=== PATIENT | male | born 1965 | race Caucasian/White ===

== ENCOUNTER 2017-04-04 12:31 | Emergency (ER) | payer MEDICAID ==
[~2017-04-04] VITALS: Ht 188 cm; Wt 127.0 kg
[2017-04-04 12:39] VITALS: BP 157/77
[2017-04-04 14:17] LABS: Basophils # (auto) 0.1 uL; Basophils % (auto) 0.5 % (0.0-2.0); Eosinophils # (auto) 0.1 uL; Eosinophils % (auto) 0.8 % (0.0-7.0); Hematocrit 51.8 % (41.0-53.0); Hemoglobin 17.3 g/dL (13.5-17.5); Lymphocytes # (auto) 1.8 uL; Lymphocytes % (auto) 18.3 % (10.0-50.0); Mean Corpuscular Hemoglobin 30.8 pg (28.0-32.0); Mean Corpuscular Hgb Conc. 33.4 g/dL (32.0-36.0); Mean Corpuscular Volume 92.3 fL (80.0-100.0); Mean Platelet Volume 7.7 fL (7.4-10.4); Monocytes # (auto) 0.6 uL; Monocytes % (auto) 6.2 % (0.0-12.0); Neutrophils # (auto) 7.1 uL; Neutrophils % (auto) 74.2 % (37.0-80.0); Platelet Count (auto) 342 10^3/uL (140-450); Red Cell Distribution Width 14.9 % (11.6-16.0); White Blood Cell 9.6 10^3/uL (4.4-10.8)
[2017-04-04 14:48] LABS: Albumin 3.7 g/dL (3.4-5.0); BUN/Creatinine Ratio 10.5; Bilirubin, Total 0.4 mg/dL (0.2-1.0); Calcium 8.1 mg/dL (8.5-10.1); Potassium 3.7 mmol/L (3.5-5.1); Total Protein 8.2 g/dL (6.4-8.2)
== END 2017-04-04 17:11 | disposition left against medical advice (07) ==
LOC: EDUNIT# 12:31 → ER 12:39
DX: M25.562 Pain in left knee (principal); M25.561 Pain in right knee; Z53.21 Procedure and treatment not carried out due to patient leaving prior to being seen by health care provider
CPT/HCPCS: 36415; 73562; 80053; 80320; 85025

== ENCOUNTER 2017-04-04 21:48 | Observation (INO) | payer MEDICAID ==
[~2017-04-04] VITALS: Ht 185.4 cm; Wt 136.1 kg
[2017-04-04 22:30] LABS: Basophils # (auto) 0 uL; Basophils % (auto) 0.1 % (0.0-2.0); Eosinophils # (auto) 0.1 uL; Hematocrit 51.9 % (41.0-53.0); Hemoglobin 17.1 g/dL (13.5-17.5); Lymphocytes # (auto) 1.7 uL; Lymphocytes % (auto) 18.2 % (10.0-50.0); Mean Corpuscular Hemoglobin 30.5 pg (28.0-32.0); Mean Corpuscular Hgb Conc. 32.9 g/dL (32.0-36.0); Mean Corpuscular Volume 92.6 fL (80.0-100.0); Mean Platelet Volume 7.7 fL (7.4-10.4); Monocytes # (auto) 0.4 uL; Monocytes % (auto) 3.9 % (0.0-12.0); Neutrophils % (auto) 76.8 % (37.0-80.0); Platelet Count (auto) 272 10^3/uL (140-450); Red Cell Distribution Width 14.7 % (11.6-16.0); SUSPECT VIEW TRANSMISSION; White Blood Cell 9.1 10^3/uL (4.4-10.8)
[2017-04-04 22:57] LABS: Platelet Clumps FEW
[2017-04-04 23:00] LABS: Albumin 3.6 g/dL (3.4-5.0); BUN/Creatinine Ratio 8.3; Bilirubin, Total 0.3 mg/dL (0.2-1.0); Calcium 8.1 mg/dL (8.5-10.1); Potassium 3.8 mmol/L (3.5-5.1); Total Protein 7.9 g/dL (6.4-8.2)
[2017-04-05] MEDS ORDERED: SODIUM CHLORIDE 0.9% 1,000 ML IV ONE (00:45)
[2017-04-05] MEDS ORDERED: BACITRACIN TOP OINT 1 UD PKG TOP ONE (02:15)
[2017-04-05] MEDS ORDERED: LIDOCAINE HCL 1 % PF INJ 2ML AMP IJ ONE (02:15)
[2017-04-05] MEDS ORDERED: LIDOCAINE 1% HCL (LOCAL ANESTH.) INJ 20ML MDV ONE (02:37)
[2017-04-05] MEDS ORDERED: THIAMINE INJ 100 MG, MULTIPLE VITAMIN 10 ML, FOLIC ACID 1 MG, MAGNESIUM SULF SDV 50% 8 ... IV SCH ×10 (02:56→12:00)
[2017-04-05] MEDS ORDERED: LIDOCAINE 1% HCL (LOCAL ANESTH.) INJ 20ML MDV IJ ONE (03:00)
[2017-04-05] MEDS ORDERED: THIAMINE HCL 100 MG/ML 2ML VIAL ONE (03:19)
[2017-04-05] MEDS ORDERED: MVI in SODIUM CHLORIDE 0.9% 1,010 ML ONE (03:20)
[2017-04-05 06:01] VITALS: BP 131/88
== END 2017-04-05 06:38 | disposition home or self-care (01) | DRG 115 ==
LOC: ER 21:48 → EDBD 21:48 → OVERFLOW 21:49 → ER 04-05 06:38
PROVIDERS: ADMIT Emergency Medicine; ATTEND Emergency Medicine
DX: S02.2XXA Fracture of nasal bones, initial encounter for closed fracture (principal); G92 Toxic encephalopathy; S01.80XA Unspecified open wound of other part of head, initial encounter; F12.10 Cannabis abuse, uncomplicated; F10.129 Alcohol abuse with intoxication, unspecified; F19.10 Other psychoactive substance abuse, uncomplicated; W01.0XXA Fall on same level from slipping, tripping and stumbling without subsequent striking against object, initial encounter; Y93.89 Activity, other specified; Y92.89 Other specified places as the place of occurrence of the external cause; Y99.8 Other external cause status
CPT/HCPCS: 12013; 36415; 70450; 70486; 72125; 80053; 80307; 80320; 85025; 93005; 96361; 96365; 96366; 99285; G0378; J2001; J3411; J3475; J7030

== ENCOUNTER 2017-04-16 21:43 | Emergency (ER) | payer MEDICAID ==
[~2017-04-16] VITALS: Ht 185.4 cm; Wt 127.0 kg
[2017-04-16 22:38] LABS: Albumin 3.6 g/dL (3.4-5.0); Calcium 8.3 mg/dL (8.5-10.1); Potassium 3.8 mmol/L (3.5-5.1)
[2017-04-16 22:43] LABS: Bilirubin, Total 0.2 mg/dL (0.2-1.0); Total Protein 7.7 g/dL (6.4-8.2)
[2017-04-16 23:00] LABS: Basophils # (auto) 0.1 uL; Basophils % (auto) 0.9 % (0.0-2.0); Eosinophils # (auto) 0.3 uL; Eosinophils % (auto) 3.7 % (0.0-7.0); Hematocrit 51.3 % (41.0-53.0); Lymphocytes # (auto) 1.7 uL; Lymphocytes % (auto) 25.7 % (10.0-50.0); Mean Corpuscular Hemoglobin 30.2 pg (28.0-32.0); Mean Corpuscular Hgb Conc. 33.1 g/dL (32.0-36.0); Mean Corpuscular Volume 91.4 fL (80.0-100.0); Mean Platelet Volume 8.4 fL (7.4-10.4); Monocytes # (auto) 0.6 uL; Neutrophils # (auto) 4.1 uL; Neutrophils % (auto) 60.7 % (37.0-80.0); Platelet Count (auto) 276 10^3/uL (140-450); Red Cell Distribution Width 15.1 % (11.6-16.0); White Blood Cell 6.8 10^3/uL (4.4-10.8)
[2017-04-16] MEDS ORDERED: MVI in SODIUM CHLORIDE 0.9% 1,010 ML ONE (23:52)
[2017-04-17 06:40] VITALS: BP 146/88
[2017-04-17] MEDS ORDERED: THIAMINE INJ 100 MG, MULTIPLE VITAMIN 10 ML, FOLIC ACID 1 MG, MAGNESIUM SULF SDV 50% 8 ... IV SCH ×5 (12:00)
== END 2017-04-17 06:40 | disposition home or self-care (01) ==
LOC: EDBD 21:43 → ER 21:45
DX: G92 Toxic encephalopathy (principal); F10.129 Alcohol abuse with intoxication, unspecified; Y90.8 Blood alcohol level of 240 mg/100 ml or more; R41.82 Altered mental status, unspecified; Z88.0 Allergy status to penicillin
CPT/HCPCS: 36415; 70450; 71010; 80053; 80320; 85025; 93005; 99285; J3411; J3475; J7030

== ENCOUNTER 2017-04-24 15:29 | Emergency (ER) | payer MEDICAID ==
[~2017-04-24] VITALS: Ht 188 cm; Wt 124.7 kg
[2017-04-24 15:35] VITALS: BP 150/82
== END 2017-04-25 | disposition left against medical advice (07) ==
LOC: EDBD 15:29 → ER 15:29
DX: F10.120 Alcohol abuse with intoxication, uncomplicated (principal); Z53.21 Procedure and treatment not carried out due to patient leaving prior to being seen by health care provider
CPT/HCPCS: 93005

== ENCOUNTER 2017-04-25 15:02 | Emergency (ER) | payer MEDICAID ==
[~2017-04-25] VITALS: Ht 182.9 cm; Wt 124.7 kg
[2017-04-25 15:19] VITALS: BP 156/111
[2017-04-25 16:02] LABS: Basophils # (auto) 0.1 uL; Basophils % (auto) 0.6 % (0.0-2.0); CONDITION Y; Eosinophils # (auto) 0.1 uL; Eosinophils % (auto) 1.5 % (0.0-7.0); Hematocrit 53.6 % (41.0-53.0); Hemoglobin 17.9 g/dL (13.5-17.5); Lymphocytes # (auto) 2.3 uL; Lymphocytes % (auto) 25.9 % (10.0-50.0); Mean Corpuscular Hemoglobin 30.2 pg (28.0-32.0); Mean Corpuscular Hgb Conc. 33.3 g/dL (32.0-36.0); Mean Corpuscular Volume 90.8 fL (80.0-100.0); Monocytes # (auto) 0.5 uL; Monocytes % (auto) 6.2 % (0.0-12.0); Neutrophils # (auto) 5.7 uL; Neutrophils % (auto) 65.8 % (37.0-80.0); Platelet Count (auto) 340 10^3/uL (140-450); Red Cell Distribution Width 14.8 % (11.6-16.0); White Blood Cell 8.7 10^3/uL (4.4-10.8)
[2017-04-25 16:15] LABS: Albumin 3.8 g/dL (3.4-5.0); BUN/Creatinine Ratio 11.3; Calcium 8.3 mg/dL (8.5-10.1); Potassium 3.4 mmol/L (3.5-5.1)
[2017-04-25 16:20] LABS: Bilirubin, Total 0.6 mg/dL (0.2-1.0); Total Protein 8.3 g/dL (6.4-8.2)
== END 2017-04-25 21:59 | disposition left against medical advice (07) ==
LOC: ER 15:05
DX: F10.120 Alcohol abuse with intoxication, uncomplicated (principal); Z88.0 Allergy status to penicillin; Z53.29 Procedure and treatment not carried out because of patient's decision for other reasons; W19.XXXA Unspecified fall, initial encounter; Y93.89 Activity, other specified; Y99.8 Other external cause status; Y92.89 Other specified places as the place of occurrence of the external cause
CPT/HCPCS: 36415; 80053; 80320; 85025; 99284; J7030

== ENCOUNTER 2017-05-23 08:37 | Inpatient (IN) | payer MEDICAID ==
[~2017-05-23] VITALS: Ht 188 cm; Wt 135.7 kg
[2017-05-23] MEDS ORDERED: SODIUM CHLORIDE 0.9% 1,000 ML IVB ONE (10:11)
[2017-05-23] MEDS ORDERED: PROMETHAZINE HCL 25 MG/ML 1ML IV PRN (10:15)
[2017-05-23] MEDS ORDERED: PANTOPRAZOLE SODIUM 80 MG in SODIUM CHL 0.9% 60 ML IV ONE (10:15)
[2017-05-23] MEDS ORDERED: PANTOPRAZOLE 40 MG TAB PO ONE (10:15)
[2017-05-23] MEDS: THIAMINE INJ 100 MG, MULTIPLE VITAMIN 10 ML, FOLIC ACID 1 MG, MAGNESIUM SULF SDV 50% 8 ... IV SCH ×5 (11:19)
[2017-05-23 11:21] LABS: Urine Bilirubin Negative (Negative); Urine Color Yellow (Yellow); Urine Glucose Normal (Normal); Urine Mucus FEW (None Seen); Urine Nitrite Negative (Negative); Urine RBC 14 /hpf (0 - 3); Urine Squamous Epithelial Cell FEW /hpf (<5); Urine pH 6.5 (5.0-8.0)
[2017-05-23 11:23] LABS: Urine Blood 1+ /uL (Negative); Urine Ketone 1+ (Negative)
[2017-05-23 11:29] LABS: Basophils # (auto) 0 uL; Basophils % (auto) 0.2 % (0.0-2.0); CONDITION Y; Eosinophils # (auto) 0 uL; Hematocrit 52.5 % (41.0-53.0); Hemoglobin 17.4 g/dL (13.5-17.5); Lymphocytes # (auto) 1.8 uL; Lymphocytes % (auto) 12.2 % (10.0-50.0); Mean Corpuscular Hemoglobin 30.5 pg (28.0-32.0); Mean Corpuscular Hgb Conc. 33.1 g/dL (32.0-36.0); Mean Corpuscular Volume 92.1 fL (80.0-100.0); Mean Platelet Volume 8.5 fL (7.4-10.4); Monocytes # (auto) 1.1 uL; Monocytes % (auto) 7.6 % (0.0-12.0); Neutrophils # (auto) 11.8 uL; Platelet Count (auto) 371 10^3/uL (140-450); Red Cell Distribution Width 14.4 % (11.6-16.0); White Blood Cell 14.8 10^3/uL (4.4-10.8)
[2017-05-23 11:42] LABS: INR 0.99 (0.9-1.15); Partial Thromboplastin Time 30.5 sec (22.64-33.71); Prothrombin Time 10.8 sec (9.37-12.3)
[2017-05-23 11:43] LABS: Albumin 3.3 g/dL (3.4-5.0); Alkaline Phosphatase 98 U/L (45-117); Amylase 40 U/L (25-115); Anion Gap 16 (5-15); Aspartate Aminotransferase 29 U/L (15-37); BUN/Creatinine Ratio 16.3; Blood Urea Nitrogen 15 mg/dL (7-18); Calcium 8.4 mg/dL (8.5-10.1); Carbon Dioxide 35 mmol/L (21-32); Chloride 81 mmol/L (98-107); GFR African American 111 mL/min; GFR Non-African American 91 mL/min; Glucose 119 mg/dL (74-106); Magnesium 2.5 mg/dL (1.6-2.6); Sodium 132 mmol/L (136-145); Total Protein 7.6 g/dL (6.4-8.2)
[2017-05-23 12:03] LABS: Potassium 2.7 mmol/L (3.5-5.1)
[2017-05-23] MEDS ORDERED: POTASSIUM CHL 20 Meq TABLET PO ONE ×2 (13:00→14:40)
[2017-05-23] MEDS: SODIUM CHLORIDE 0.9% 1,000 ML IV SCH (16:04)
[2017-05-23] MEDS ORDERED: metroNIDAZOLE 500MG/100ML 100 ML IV ONE (16:15)
[2017-05-23] MEDS ORDERED: SODIUM CHLORIDE 0.9% 1,000 ML IV SCH (16:15)
[2017-05-23] MEDS ORDERED: TEMAZEPAM 15 MG CAP PO PRN ×2 (16:15)
[2017-05-23] MEDS ORDERED: HYDROcodone-ACET 5/325MG TAB PO PRN ×2 (16:15)
[2017-05-23] MEDS ORDERED: LORazepam 2MG/ML-1ML VIAL IV PRN (16:15)
[2017-05-23] MEDS ORDERED: MORPHINE SULF INJ 2 MG/ML SYRINGE 1ML IV PRN ×5 (16:15→17:45)
[2017-05-23] MEDS ORDERED: LORazepam 0.5 MG TAB PO PRN (16:15)
[2017-05-23] MEDS ORDERED: ONDANSETRON HCL 4 MG/2 ML VIAL IV PRN (16:15)
[2017-05-23] MEDS ORDERED: PANTOPRAZOLE SODIUM 40 MG/10 ML VIAL IV ONE (16:15)
[2017-05-23] MEDS ORDERED: NITROGLYCERIN 0.4 MG SL TAB SL PRN ×2 (16:15)
[2017-05-23] MEDS ORDERED: LEVOFLOXACIN 500MG 100 ML IV ONE (16:15)
[2017-05-23] MEDS ORDERED: ACETAMINOPHEN 500 MG TAB PO PRN ×3 (16:15→17:45)
[2017-05-23] MEDS ORDERED: THIAMINE HCL 100 MG/ML 2ML VIAL IV ONE (16:45)
[2017-05-23 16:52] LABS: Hematocrit 47.7 % (41.0-53.0); Hemoglobin 16.1 g/dL (13.5-17.5)
[2017-05-23 17:23] LABS: INR 0.99 (0.9-1.15); Partial Thromboplastin Time 30.4 sec (22.64-33.71); Prothrombin Time 10.8 sec (9.37-12.3)
[2017-05-23] MEDS ORDERED: metroNIDAZOLE 500MG/100ML 100 ML IV SCH (18:00)
[2017-05-23] MEDS ORDERED: chlordiazePOXIDE HCL 5 MG CAP PO SCH (18:00)
[2017-05-23] MEDS: metroNIDAZOLE 500MG/100ML 100 ML IV SCH ×2 (18:15→23:45)
[2017-05-23] MEDS: PROMETHAZINE HCL 25 MG/ML 1ML IV PRN ×2 (18:16→22:37)
[2017-05-23] MEDS ORDERED: MORPHINE SULF INJ 2 MG/ML SYRINGE 1ML IV ONE (19:30)
[2017-05-23] MEDS: HYDROcodone-ACET 5/325MG TAB PO PRN (21:21)
[2017-05-23] MEDS: TEMAZEPAM 15 MG CAP PO PRN (21:22)
[2017-05-23 22:00] VITALS: BP 150/87
[2017-05-23] MEDS: MORPHINE SULFATE 4 MG/ML SYRG IV PRN (22:37)
[2017-05-23] MEDS: chlordiazePOXIDE HCL 5 MG CAP PO SCH (23:45)
[2017-05-23 23:55] VITALS: BP 150/87
[2017-05-24] VITALS (8 sets, daily range): BP systolic 128–165; BP diastolic 82–104
[2017-05-24] MEDS: SODIUM CHLORIDE 0.9% 1,000 ML IV SCH ×3 (00:04→16:04)
[2017-05-24] MEDS ORDERED: ACET300T4 PO (00:32)
[2017-05-24] MEDS ORDERED: ZOLP10TA PO (00:32)
[2017-05-24] MEDS ORDERED: NAP500T PO (00:32)
[2017-05-24 01:11] LABS: Hematocrit 44.2 % (41.0-53.0); Hemoglobin 14.7 g/dL (13.5-17.5)
[2017-05-24] MEDS: PROMETHAZINE HCL 25 MG/ML 1ML IV PRN (04:39)
[2017-05-24] MEDS: MORPHINE SULFATE 4 MG/ML SYRG IV PRN ×3 (04:39→18:12)
[2017-05-24] MEDS: chlordiazePOXIDE HCL 5 MG CAP PO SCH ×3 (05:56→18:13)
[2017-05-24] MEDS: metroNIDAZOLE 500MG/100ML 100 ML IV SCH (05:56)
[2017-05-24 06:15] LABS: Basophils # (auto) 0 uL; Basophils % (auto) 0.2 % (0.0-2.0); CONDITION Y; Eosinophils # (auto) 0.1 uL; Eosinophils % (auto) 0.6 % (0.0-7.0); Hematocrit 42.6 % (41.0-53.0); Hemoglobin 14.3 g/dL (13.5-17.5); Lymphocytes # (auto) 1.7 uL; Lymphocytes % (auto) 19.8 % (10.0-50.0); Mean Corpuscular Hgb Conc. 33.5 g/dL (32.0-36.0); Mean Corpuscular Volume 92.6 fL (80.0-100.0); Mean Platelet Volume 8.3 fL (7.4-10.4); Monocytes # (auto) 0.6 uL; Monocytes % (auto) 6.6 % (0.0-12.0); Neutrophils # (auto) 6.2 uL; Neutrophils % (auto) 72.8 % (37.0-80.0); Platelet Count (auto) 246 10^3/uL (140-450); Red Cell Distribution Width 14.8 % (11.6-16.0); White Blood Cell 8.6 10^3/uL (4.4-10.8)
[2017-05-24 06:54] LABS: Albumin 2.5 g/dL (3.4-5.0); BUN/Creatinine Ratio 14.6; Bilirubin, Total 1.6 mg/dL (0.2-1.0); Calcium 7.9 mg/dL (8.5-10.1); Total Protein 5.7 g/dL (6.4-8.2)
[2017-05-24 06:59] LABS: Potassium 2.8 mmol/L (3.5-5.1)
[2017-05-24] MEDS ORDERED: POTASSIUM CHL 20 Meq TABLET PO ONE (07:15)
[2017-05-24] MEDS ORDERED: SODIUM CHLORIDE LOCK 10 ML ONE (08:09)
[2017-05-24] MEDS ORDERED: LIDOCAINE VISCOUS 2% 15ML UD ONE (08:09)
[2017-05-24] MEDS ORDERED: diphenhdrAMINE HCL 50 MG/1 ML VL ONE (08:10)
[2017-05-24] MEDS: HYDROcodone-ACET 5/325MG TAB PO PRN ×2 (08:11→20:16)
[2017-05-24] MEDS ORDERED: PANTOPRAZOLE SODIUM 40 MG/10 ML VIAL IV SCH ×2 (10:00)
[2017-05-24] MEDS ORDERED: LEVOFLOXACIN 500MG 100 ML IV SCH (10:00)
[2017-05-24] MEDS: MIDAZOLAM HCL 5 MG/ML-1ML VIAL ONE ×2 (10:42→10:45)
[2017-05-24] MEDS: fentaNYL CITRATE 100 MCG/2 ML VL ONE ×2 (10:42→10:45)
[2017-05-24] MEDS ORDERED: PANTOPRAZOLE 40 MG TAB PO ONE (11:00)
[2017-05-24] MEDS: THIAMINE HCL 100 MG/ML 2ML VIAL IV SCH (11:45)
[2017-05-24] MEDS ORDERED: POTASSIUM CHLORIDE 20 MEQ, LIDOCAINE 1% (LOCAL ANESTH.) 2 ML in SODIUM CHL 0.9% 100 ML IV ONE (12:00)
[2017-05-24] MEDS ORDERED: POTASSIUM CHLORIDE 40 MEQ, LIDOCAINE 1% (LOCAL ANESTH.) 4 ML in SODIUM CHL 0.9% 250 ML IV ONE (12:00)
[2017-05-24] MEDS: THIAMINE INJ 100 MG, MULTIPLE VITAMIN 10 ML, FOLIC ACID 1 MG, MAGNESIUM SULF SDV 50% 8 ... IV SCH ×5 (14:35)
[2017-05-24] MEDS: ONDANSETRON HCL 4 MG/2 ML VIAL IV PRN (18:12)
[2017-05-24] MEDS: TEMAZEPAM 15 MG CAP PO PRN (21:54)
[2017-05-24] MEDS: PANTOPRAZOLE 40 MG TAB PO SCH (21:54)
[2017-05-25] MEDS: SODIUM CHLORIDE 0.9% 1,000 ML IV SCH ×4 (00:19→23:38)
[2017-05-25] MEDS: PROMETHAZINE HCL 25 MG/ML 1ML IV PRN ×2 (00:19→13:41)
[2017-05-25] MEDS: chlordiazePOXIDE HCL 5 MG CAP PO SCH ×5 (00:19→23:37)
[2017-05-25] MEDS: MORPHINE SULFATE 4 MG/ML SYRG IV PRN ×4 (00:20→19:42)
[2017-05-25] MEDS: HYDROcodone-ACET 5/325MG TAB PO PRN ×3 (03:50→21:41)
[2017-05-25 04:51] VITALS: BP 135/81
[2017-05-25] MEDS: ONDANSETRON HCL 4 MG/2 ML VIAL IV PRN ×2 (06:31→19:42)
[2017-05-25 08:37] LABS: Basophils # (auto) 0.1 uL; Basophils % (auto) 0.8 % (0.0-2.0); CONDITION Y; Eosinophils # (auto) 0.2 uL; Eosinophils % (auto) 2.5 % (0.0-7.0); Hematocrit 42.9 % (41.0-53.0); Lymphocytes # (auto) 1.7 uL; Mean Corpuscular Hemoglobin 30.5 pg (28.0-32.0); Mean Corpuscular Hgb Conc. 32.6 g/dL (32.0-36.0); Mean Corpuscular Volume 93.6 fL (80.0-100.0); Monocytes # (auto) 0.6 uL; Monocytes % (auto) 7.7 % (0.0-12.0); Neutrophils # (auto) 5.5 uL; Platelet Count (auto) 234 10^3/uL (140-450); Red Cell Distribution Width 14.8 % (11.6-16.0)
[2017-05-25 08:50] LABS: Albumin 2.5 g/dL (3.4-5.0); BUN/Creatinine Ratio 12.3; Calcium 7.8 mg/dL (8.5-10.1); Potassium 3.8 mmol/L (3.5-5.1)
[2017-05-25 08:52] LABS: Bilirubin, Total 1.1 mg/dL (0.2-1.0); Total Protein 5.6 g/dL (6.4-8.2)
[2017-05-25 09:00] VITALS: BP 129/92
[2017-05-25] MEDS: THIAMINE HCL 100 MG/ML 2ML VIAL IV SCH (09:33)
[2017-05-25] MEDS: PANTOPRAZOLE 40 MG TAB PO SCH ×2 (09:33→21:41)
[2017-05-25] MEDS: THROAT LOZENGES(CEPASTAT) MT PRN ×4 (09:34→23:38)
[2017-05-25] MEDS: THIAMINE INJ 100 MG, MULTIPLE VITAMIN 10 ML, FOLIC ACID 1 MG, MAGNESIUM SULF SDV 50% 8 ... IV SCH ×5 (12:00)
[2017-05-25 12:34] VITALS: BP 115/70
[2017-05-25] MEDS: LORazepam 2MG/ML-1ML VIAL IV PRN ×2 (13:41→18:20)
[2017-05-25 17:25] VITALS: BP 129/75
[2017-05-25 21:32] VITALS: BP 147/98
[2017-05-25] MEDS: TEMAZEPAM 15 MG CAP PO PRN (23:38)
[2017-05-26] MEDS: MORPHINE SULFATE 4 MG/ML SYRG IV PRN ×2 (01:39→08:27)
[2017-05-26 04:56] VITALS: BP 136/89
[2017-05-26] MEDS: chlordiazePOXIDE HCL 5 MG CAP PO SCH (06:02)
[2017-05-26 06:47] LABS: Basophils # (auto) 0.1 uL; Basophils % (auto) 0.7 % (0.0-2.0); CONDITION Y; Eosinophils # (auto) 0.3 uL; Eosinophils % (auto) 3.2 % (0.0-7.0); Hematocrit 41.8 % (41.0-53.0); Hemoglobin 14.6 g/dL (13.5-17.5); Mean Corpuscular Hemoglobin 31.6 pg (28.0-32.0); Mean Corpuscular Volume 90.2 fL (80.0-100.0); Mean Platelet Volume 8.7 fL (7.4-10.4); Monocytes # (auto) 0.6 uL; Monocytes % (auto) 6.6 % (0.0-12.0); Neutrophils % (auto) 67.5 % (37.0-80.0); Platelet Count (auto) 190 10^3/uL (140-450); Red Cell Distribution Width 14.6 % (11.6-16.0)
[2017-05-26 06:53] LABS: Calcium 7.7 mg/dL (8.5-10.1); Potassium 3.6 mmol/L (3.5-5.1)
[2017-05-26 06:56] LABS: Albumin 2.6 g/dL (3.4-5.0); BUN/Creatinine Ratio 11.5; Magnesium 2.3 mg/dL (1.6-2.6)
[2017-05-26 07:09] LABS: Bilirubin, Total 0.9 mg/dL (0.2-1.0); Total Protein 5.8 g/dL (6.4-8.2)
[2017-05-26] MEDS: ONDANSETRON HCL 4 MG/2 ML VIAL IV PRN (08:27)
[2017-05-26] MEDS: THROAT LOZENGES(CEPASTAT) MT PRN (08:33)
[2017-05-26 08:42] VITALS: BP 131/85
[2017-05-26] MEDS: PANTOPRAZOLE 40 MG TAB PO SCH (09:50)
[2017-05-26] MEDS: THIAMINE HCL 100 MG/ML 2ML VIAL IV SCH (09:50)
[2017-05-26] MEDS: SODIUM CHLORIDE 0.9% 1,000 ML IV SCH (09:51)
== END 2017-05-26 19:08 | disposition home or self-care (01) | DRG 241 ==
LOC: EDBD 08:37 → ER 08:37 → TELE 08:38 → TELE-CENTR 20:33
PROVIDERS: ADMIT Nurse Practitioner Family; ATTEND Internal Medicine
PROC: 0DB68ZX Excision of Stomach, Via Natural or Artificial Opening Endoscopic, Diagnostic (ICD-10-PCS; principal; 2017-05-24 10:40)
DX: K29.20 Alcoholic gastritis without bleeding (principal); E87.1 Hypo-osmolality and hyponatremia; K92.2 Gastrointestinal hemorrhage, unspecified; N39.0 Urinary tract infection, site not specified; K29.80 Duodenitis without bleeding; K20.9 Esophagitis, unspecified; F10.229 Alcohol dependence with intoxication, unspecified; K44.9 Diaphragmatic hernia without obstruction or gangrene; E66.9 Obesity, unspecified; M19.90 Unspecified osteoarthritis, unspecified site; E87.6 Hypokalemia; F12.10 Cannabis abuse, uncomplicated; I99.9 Unspecified disorder of circulatory system; K57.30 Diverticulosis of large intestine without perforation or abscess without bleeding; Z88.0 Allergy status to penicillin; Z68.38 Body mass index [BMI] 38.0-38.9, adult
CPT/HCPCS: 36415; 43239; 71020; 74176; 80053; 80307; 80320; 81001; 82150; 82270; 82378; 83690; 83735; 84443; 84484; 85014; 85018; 85025; 85045; 85610; 85652; 85730; 86850; 86900; 86901; 87040; 87081; 88342; 93005; 94761; 96365; 96375; 96376; A4565; C9113; J1956; J2001; J2250; J2405; J3490

== ENCOUNTER 2017-06-03 02:02 | Emergency (ER) | payer MEDICAID ==
[~2017-06-03] VITALS: Ht 188 cm; Wt 136.1 kg
[~2017-06-03 02:02] MED LIST: ACET300T4 PO; NAP500T PO; ZOLP10TA PO
[2017-06-03 02:53] LABS: Basophils # (auto) 0 uL; Basophils % (auto) 0.8 % (0.0-2.0); CONDITION Y; Eosinophils # (auto) 0.1 uL; Eosinophils % (auto) 1.8 % (0.0-7.0); Hematocrit 45.8 % (41.0-53.0); Hemoglobin 15.2 g/dL (13.5-17.5); Lymphocytes # (auto) 1.6 uL; Lymphocytes % (auto) 27.6 % (10.0-50.0); Mean Corpuscular Hemoglobin 30.9 pg (28.0-32.0); Mean Corpuscular Hgb Conc. 33.3 g/dL (32.0-36.0); Mean Corpuscular Volume 92.9 fL (80.0-100.0); Mean Platelet Volume 7.8 fL (7.4-10.4); Monocytes # (auto) 0.4 uL; Neutrophils # (auto) 3.8 uL; Neutrophils % (auto) 63.8 % (37.0-80.0); Platelet Count (auto) 408 10^3/uL (140-450)
[2017-06-03 03:17] LABS: Albumin 2.8 g/dL (3.4-5.0); BUN/Creatinine Ratio 11.4; Calcium 7.5 mg/dL (8.5-10.1)
[2017-06-03 03:22] LABS: Bilirubin, Total 0.3 mg/dL (0.2-1.0)
[2017-06-03 03:24] LABS: Potassium 3.9 mmol/L (3.5-5.1)
[2017-06-03] MEDS ORDERED: SODIUM CHLORIDE 0.9% 1,000 ML IV ONE ×3 (06:00→06:55)
[2017-06-03] MEDS ORDERED: THIAMINE HCL 100 MG/ML 2ML VIAL IV ONE (07:00)
[2017-06-03 07:25] VITALS: BP 147/97
[2017-06-03] MEDS ORDERED: LIDOCAINE 1% HCL (LOCAL ANESTH.) INJ 20ML MDV ONE (07:47)
[2017-06-03] MEDS ORDERED: TETANUS-DIPTH-ACEL PERTUSSIS 0.5ML SYRG IM ONE (09:00)
[2017-06-03] MEDS ORDERED: LEVOFLOXACIN 750MG 150 ML IV ONE (09:00)
[2017-06-03] MEDS ORDERED: HYDROcodone-ACET 7.5/325MG TAB PO ONE (09:30)
== END 2017-06-03 11:45 | disposition home or self-care (01) ==
LOC: EDBD 02:02 → ER 02:20
DX: S63.253A Unspecified dislocation of left middle finger, initial encounter (principal); S62.307A Unspecified fracture of fifth metacarpal bone, left hand, initial encounter for closed fracture; S62.305A Unspecified fracture of fourth metacarpal bone, left hand, initial encounter for closed fracture; S61.412A Laceration without foreign body of left hand, initial encounter; F10.129 Alcohol abuse with intoxication, unspecified; Y90.9 Presence of alcohol in blood, level not specified; Z88.0 Allergy status to penicillin; X58.XXXA Exposure to other specified factors, initial encounter; Y93.89 Activity, other specified; Y99.8 Other external cause status; Y92.89 Other specified places as the place of occurrence of the external cause
CPT/HCPCS: 12004; 29125; 36415; 73130; 80053; 80307; 80320; 85025; 90471; 90715; 96361; 96365; 96366; 96375; 99285; J1956; J2001; J3411; J7030

== ENCOUNTER 2017-06-07 21:06 | Emergency (ER) | payer MEDICAID ==
[~2017-06-07] VITALS: Ht 188 cm; Wt 158.8 kg
[2017-06-07 21:18] VITALS: BP 122/82
== END 2017-06-08 02:27 | disposition left against medical advice (07) ==
LOC: EDBD 21:06 → ER 21:13
DX: F10.10 Alcohol abuse, uncomplicated (principal); Z53.21 Procedure and treatment not carried out due to patient leaving prior to being seen by health care provider

== ENCOUNTER 2017-06-08 14:40 | Emergency (ER) | payer MEDICAID ==
[~2017-06-08] VITALS: Ht 188 cm; Wt 90.7 kg
[2017-06-08] MEDS ORDERED: SODIUM CHLORIDE 0.9% 1,000 ML IV ONE ×2 (14:53)
[2017-06-08] MEDS ORDERED: KETOROLAC TROMETH 30 MG/ML 1ML VIAL IV ONE (17:30)
[2017-06-08 19:39] VITALS: BP 123/78
== END 2017-06-08 20:37 | disposition home or self-care (01) ==
LOC: EDBD 14:40 → ER 14:50
DX: F10.120 Alcohol abuse with intoxication, uncomplicated (principal); Z88.0 Allergy status to penicillin
CPT/HCPCS: 36415; 80320; 96361; 96374; 99285; J1885; J7030

== ENCOUNTER 2017-06-20 11:02 | Emergency (ER) | payer MEDICAID ==
[~2017-06-20] VITALS: Ht 177.8 cm; Wt 113.4 kg
[2017-06-20] MEDS ORDERED: SODIUM CHLORIDE 0.9% 1,000 ML IVB ONE (12:16)
[2017-06-20] MEDS ORDERED: THIAMINE INJ 100 MG, MULTIPLE VITAMIN 10 ML, FOLIC ACID 1 MG, MAGNESIUM SULF SDV 50% 8 ... IV SCH ×5 (13:00)
[2017-06-20 13:17] LABS: Basophils # (auto) 0 uL; Basophils % (auto) 0.3 % (0.0-2.0); CONDITION Y; Eosinophils # (auto) 0 uL; Eosinophils % (auto) 0.3 % (0.0-7.0); Hematocrit 43.9 % (41.0-53.0); Hemoglobin 14.7 g/dL (13.5-17.5); Lymphocytes # (auto) 1.8 uL; Lymphocytes % (auto) 16.2 % (10.0-50.0); Mean Corpuscular Hgb Conc. 33.4 g/dL (32.0-36.0); Mean Corpuscular Volume 92.6 fL (80.0-100.0); Mean Platelet Volume 7.6 fL (7.4-10.4); Monocytes # (auto) 0.8 uL; Monocytes % (auto) 7.2 % (0.0-12.0); Neutrophils # (auto) 8.4 uL; Platelet Count (auto) 334 10^3/uL (140-450); Red Cell Distribution Width 15.5 % (11.6-16.0); White Blood Cell 11.1 10^3/uL (4.4-10.8)
[2017-06-20 13:37] LABS: INR 0.98 (0.9-1.15); Partial Thromboplastin Time 29.2 sec (22.64-33.71); Prothrombin Time 10.7 sec (9.37-12.3)
[2017-06-20 13:41] LABS: Albumin 2.9 g/dL (3.4-5.0); Calcium 7.6 mg/dL (8.5-10.1); Magnesium 2.2 mg/dL (1.6-2.6); Potassium 3.1 mmol/L (3.5-5.1)
[2017-06-20 13:53] LABS: Bilirubin, Total 0.7 mg/dL (0.2-1.0); Total Protein 6.6 g/dL (6.4-8.2)
[2017-06-20 13:59] LABS: Lactic Acid w/Reflex 2.7 mmol/L (0.4-2.0)
[2017-06-20 14:05] LABS: REFLEX LACTIC ACID YES OR NO YES
[2017-06-20 15:23] LABS: Urine RBC None Seen /hpf (0 - 3)
[2017-06-20] MEDS ORDERED: SODIUM CHLORIDE 0.9% 1,000 ML IV ONE ×2 (15:45→18:00)
[2017-06-20 15:50] LABS: Urine Bilirubin Negative (Negative); Urine Blood Negative /uL (Negative); Urine Color Yellow (Yellow); Urine Glucose Normal (Normal); Urine Ketone Negative (Negative); Urine Nitrite Negative (Negative); Urine Urobilinogen Normal (Negative); Urine pH 6.5 (5.0-8.0)
[2017-06-20] MEDS ORDERED: LORazepam 2MG/ML-1ML VIAL IV ONE ×2 (16:15→18:00)
[2017-06-20 18:22] VITALS: BP 152/96
[2017-06-20] MEDS ORDERED: POTASSIUM CHL 10% (20 MEQ/15ML) ORAL SOLN PO ONE (18:45)
[2017-06-20] MEDS ORDERED: ONDANSETRON HCL 4 MG/2 ML VIAL IV ONE (19:00)
[2017-06-20] MEDS ORDERED: NEOMYCIN-BACITRACIN-POLYM UNITDOSE PKG TOP OINT TOP ONE (19:00)
== END 2017-06-20 19:52 | disposition home or self-care (01) ==
LOC: EDBD 11:02 → ER 11:02
DX: R41.82 Altered mental status, unspecified (principal); G92 Toxic encephalopathy; E87.6 Hypokalemia; F12.10 Cannabis abuse, uncomplicated; F19.10 Other psychoactive substance abuse, uncomplicated; S80.02XA Contusion of left knee, initial encounter; S00.31XA Abrasion of nose, initial encounter; S80.211A Abrasion, right knee, initial encounter; E44.0 Moderate protein-calorie malnutrition; Z68.35 Body mass index [BMI] 35.0-35.9, adult; Z88.0 Allergy status to penicillin; I48.91 Unspecified atrial fibrillation; J44.9 Chronic obstructive pulmonary disease, unspecified; E11.9 Type 2 diabetes mellitus without complications; W18.39XA Other fall on same level, initial encounter; Y93.89 Activity, other specified; Y92.89 Other specified places as the place of occurrence of the external cause; Y99.8 Other external cause status
CPT/HCPCS: 36415; 51702; 70450; 71010; 73562; 80053; 80307; 80320; 81001; 82962; 83605; 83735; 84443; 85025; 85610; 85730; 93005; 94761; 96361; 96365; 96366; 96375; 96376; 99285; J2060; J3411; J3475; J7030; J2405

== ENCOUNTER 2017-06-21 02:27 | Emergency (ER) | payer MEDICAID ==
[~2017-06-21] VITALS: Ht 180.3 cm; Wt 113.4 kg
[2017-06-21 03:18] LABS: Basophils # (auto) 0.1 uL; Basophils % (auto) 0.9 % (0.0-2.0); CONDITION Y; Eosinophils # (auto) 0 uL; Hemoglobin 14.1 g/dL (13.5-17.5); Lymphocytes % (auto) 8.7 % (10.0-50.0); Mean Corpuscular Hemoglobin 30.6 pg (28.0-32.0); Mean Corpuscular Hgb Conc. 32.8 g/dL (32.0-36.0); Mean Corpuscular Volume 93.2 fL (80.0-100.0); Mean Platelet Volume 7.5 fL (7.4-10.4); Monocytes # (auto) 0.8 uL; Monocytes % (auto) 6.6 % (0.0-12.0); Neutrophils # (auto) 10.1 uL; Neutrophils % (auto) 83.8 % (37.0-80.0); Platelet Count (auto) 317 10^3/uL (140-450); Red Cell Distribution Width 15.2 % (11.6-16.0)
[2017-06-21 03:25] LABS: Urine RBC None Seen /hpf (0 - 3)
[2017-06-21 03:33] LABS: Urine Bilirubin Negative (Negative); Urine Color Colorless (Yellow); Urine Glucose Normal (Normal); Urine Ketone Negative (Negative); Urine Nitrite Negative (Negative); Urine Urobilinogen Normal (Negative)
[2017-06-21 03:35] LABS: Urine Blood 1+ /uL (Negative)
[2017-06-21 04:30] LABS: Acetaminophen < 2.0 ug/mL (10-30); Albumin 2.9 g/dL (3.4-5.0); BUN/Creatinine Ratio 6.3; Bilirubin, Total 0.8 mg/dL (0.2-1.0); Calcium 7.5 mg/dL (8.5-10.1); Magnesium 2.2 mg/dL (1.6-2.6); Potassium 3.2 mmol/L (3.5-5.1); Salicylate < 1.7 mg/dL (2.8-20.0); Total Protein 6.6 g/dL (6.4-8.2)
[2017-06-21] MEDS ORDERED: BACITRACIN-POLYMYXIN B TOPICAL OINT UD TOP ONE (05:58)
[2017-06-21] MEDS ORDERED: ONDANSETRON HCL 4 MG/2 ML VIAL IV ONE (06:45)
[2017-06-21] MEDS ORDERED: SODIUM CHLORIDE 0.9% 1,000 ML IV ONE (06:45)
[2017-06-21 10:01] VITALS: BP 143/82
== END 2017-06-21 12:07 | disposition home or self-care (01) ==
LOC: EDBD 02:27 → ER 02:38
DX: F10.10 Alcohol abuse, uncomplicated (principal); S62.92XD Unspecified fracture of left hand, subsequent encounter for fracture with routine healing; S00.31XD Abrasion of nose, subsequent encounter; S80.812D Abrasion, left lower leg, subsequent encounter; S80.811D Abrasion, right lower leg, subsequent encounter; R45.851 Suicidal ideations; Z88.0 Allergy status to penicillin; Z79.899 Other long term (current) drug therapy; I48.91 Unspecified atrial fibrillation; J44.9 Chronic obstructive pulmonary disease, unspecified; E11.9 Type 2 diabetes mellitus without complications; F12.10 Cannabis abuse, uncomplicated; W18.39XD Other fall on same level, subsequent encounter; Y93.89 Activity, other specified; Y92.89 Other specified places as the place of occurrence of the external cause; Y99.8 Other external cause status; R42 Dizziness and giddiness
CPT/HCPCS: 29125; 36415; 70450; 72192; 73080; 80053; 80307; 80320; 80329; 81001; 83735; 85025; 93005; 96361; 96374; 99285; J2405; J7030

== ENCOUNTER 2017-06-22 22:31 | Emergency (ER) | payer MEDICAID ==
[~2017-06-22] VITALS: Ht 190.5 cm; Wt 93.0 kg
[2017-06-23] MEDS ORDERED: SODIUM CHLORIDE 0.9% 1,000 ML IV ONE (02:00)
[2017-06-23] MEDS ORDERED: MORPHINE SULFATE 4 MG/ML SYRG ONE (02:46)
[2017-06-23] MEDS ORDERED: ONDANSETRON HCL 4 MG/2 ML VIAL ONE (02:46)
[2017-06-23 02:48] LABS: Basophils # (auto) 0.2 uL; Basophils % (auto) 1.3 % (0.0-2.0); Eosinophils # (auto) 0 uL; Eosinophils % (auto) 0.4 % (0.0-7.0); Hematocrit 42.2 % (41.0-53.0); Hemoglobin 13.9 g/dL (13.5-17.5); Lymphocytes # (auto) 1.6 uL; Lymphocytes % (auto) 12.9 % (10.0-50.0); Mean Corpuscular Hemoglobin 30.5 pg (28.0-32.0); Mean Corpuscular Volume 92.4 fL (80.0-100.0); Mean Platelet Volume 7.7 fL (7.4-10.4); Monocytes # (auto) 0.7 uL; Neutrophils # (auto) 9.7 uL; Neutrophils % (auto) 79.4 % (37.0-80.0); Platelet Count (auto) 316 10^3/uL (140-450); Red Cell Distribution Width 14.5 % (11.6-16.0); SUSPECT SEE PRINTOUT; White Blood Cell 12.2 10^3/uL (4.4-10.8)
[2017-06-23] MEDS ORDERED: ONDANSETRON HCL 4 MG/2 ML VIAL IV ONE ×2 (03:00→06:30)
[2017-06-23] MEDS ORDERED: MORPHINE SULFATE 4 MG/ML SYRG IV ONE ×2 (03:00→06:30)
[2017-06-23 03:02] LABS: Albumin 3.1 g/dL (3.4-5.0); Anion Gap 12 (5-15); BUN/Creatinine Ratio 4.9; Blood Urea Nitrogen 4 mg/dL (7-18); Calcium 7.9 mg/dL (8.5-10.1); Carbon Dioxide 26 mmol/L (21-32); Chloride 101 mmol/L (98-107); GFR African American 126 mL/min; GFR Non-African American 104 mL/min; Glucose 103 mg/dL (74-106); Sodium 139 mmol/L (136-145)
[2017-06-23 03:08] LABS: Alkaline Phosphatase 106 U/L (45-117); Aspartate Aminotransferase 39 U/L (15-37)
[2017-06-23 03:27] LABS: INR 0.96 (0.9-1.15); Partial Thromboplastin Time 29.2 sec (22.64-33.71); Prothrombin Time 10.5 sec (9.37-12.3)
[2017-06-23 07:14] VITALS: BP 127/80
== END 2017-06-23 07:24 | disposition short-term general hospital (02) ==
LOC: EDBD 22:31 → ER 22:49
DX: S82.201A Unspecified fracture of shaft of right tibia, initial encounter for closed fracture (principal); S82.401A Unspecified fracture of shaft of right fibula, initial encounter for closed fracture; F10.129 Alcohol abuse with intoxication, unspecified; F12.10 Cannabis abuse, uncomplicated; J44.9 Chronic obstructive pulmonary disease, unspecified; I48.91 Unspecified atrial fibrillation; E11.9 Type 2 diabetes mellitus without complications; Z88.0 Allergy status to penicillin; X50.1XXA Overexertion from prolonged static or awkward postures, initial encounter; Y93.89 Activity, other specified; Y99.8 Other external cause status; Y92.89 Other specified places as the place of occurrence of the external cause
CPT/HCPCS: 29515; 36415; 73610; 80053; 80320; 84484; 85025; 85610; 85730; 96361; 96374; 96375; 96376; 99285; J2270; J2405; J7030